=== PATIENT | female | born 1950 | race Caucasian/White ===

== ENCOUNTER 2023-06-16 06:33 | Day surgery (SDC) | payer BC ==
--- NOTE | 2023-06-14 11:18 | HP ---
DATE: 06/16/2023 HISTORY OF PRESENT ILLNESS: Patient is a 72 year-old female who presents for a screening colonoscopy. Last colonoscopy was age 62. She had no polyps. She has no complaints. She has no family history of colon cancer. PAST MEDICAL HISTORY: Thyroid, hypertension. CURRENT MEDICATIONS: Lotensin, levothyroxine, estrogen, sodium/potassium/magnesium tablets, Volnea tablet. ALLERGIES: SULFA. PAST SURGERIES: Tubal ligation, appendectomy, knee surgery, neck surgery, thumb surgery. SOCIAL HISTORY: Occasional alcohol. FAMILY HISTORY: Osteoarthritis. REVIEW OF SYSTEMS: CONSTITUTIONAL: Denies fever or chills. CHEST: Denies shortness of breath. CVS: Denies chest pain. ABDOMEN: Denies abdominal pain. PHYSICAL EXAMINATION: GENERAL: No acute distress. CHEST: Nonlabored. No shortness of breath. CVS: Regular rate and rhythm. ABDOMEN: Soft. IMPRESSION: 1. SCREENING. PLAN: Colonoscopy with Dr. Mark. Sanchez. This report was dictated for Dr. Sanchez by Velma Terrazas NP.
[2023-06-16] MEDS ORDERED: Lactated Ringers 1,000 ML IV ONE (07:26)
[2023-06-16] MEDS ORDERED: Lactated Ringers 1,000 ML IV SCH (08:00)
[2023-06-16] MEDS ORDERED: Versed 2 MG/2 ML Injection ONE (09:26)
[2023-06-16] MEDS ORDERED: Xylocaine-Mpf 2% 5 Ml Vial ONE (09:26)
[2023-06-16] MEDS ORDERED: DIPRIVAN 200 MG/20 ML IV ONE (09:26)
[2023-06-16 10:46] VITALS: RESP 16
[2023-06-16 10:50] VITALS: BP 130/53; PULSE 59; O2SAT 99
[2023-06-16 11:12] VITALS: TEMP 99.9
--- NOTE | 2023-06-16 12:37 | OP ---
SURGERY DATE: 06/16/2023 SURGERY TIME: 950 PREOPERATIVE DIAGNOSIS: 1. SCREENING. POSTOPERATIVE DIAGNOSIS: 1. TWO POLYPS, 4 MM EACH, CECAL. PROCEDURE: 1. Colonoscopy complete to cecum. 2. Hot polypectomy X 2. SURGEON: Paul Sanchez M.D. ANESTHESIA: MAC. COMPLICATIONS: None. CONDITION: Stable. OPERATIVE PROCEDURE: Patient taken to endoscopy for a screening exam. MAC sedation. Anal digital examination satisfactory. Scope introduced. Scope advanced to the cecum. Base of the cecum, ileocecal valve, appendiceal orifice satisfactory. There were two small polyps in the cecum, 4 mm each. Each take with hot biopsy forceps and submitted in separate jars. Scope withdrawn. Ascending, hepatic, transverse, splenic, descending, sigmoid, rectum, and anus were normal. Patient tolerated the procedure satisfactory. Findings discussed with the daughter. PLAN: Follow-up exam in 5 years.
== END 2023-06-16 11:10 | disposition home or self-care (01) ==
LOC: SDC 06:33
PROVIDERS: ATTEND Surgery
DX: Z12.11 Encounter for screening for malignant neoplasm of colon (principal); D12.0 Benign neoplasm of cecum
CPT/HCPCS: J2250; J2704